=== PATIENT | female | born 1985 | race Hispanic/Latino ===

== ENCOUNTER 2022-11-10 05:34 | Emergency (ER) | payer SELFPAY ==
[2022-11-10 06:15] LABS: #Lymphocytes 3.4 thou/uL (1.20-3.40); #Monocytes 0.6 thou/uL (0.11-0.59); #Neutrophils 10.5 thou/uL (1.40-6.50); %Basophils 0.1 % (0.0-1.0); %Eosinophils 0.3 % (0.0-10.0); %Lymphocytes 23.1 % (21.0-51.0); %Monocytes 3.9 % (0.0-10.0); %Neutrophils 72.5 % (42.0-75.0); Mean Corpuscular Hemoglobin 25.4 pg (27.0-31.0); Mean Corpuscular Volume 76.8 fl (78.0-98.0); Mean Platelet Volume 8.1 fL (7.4-10.4); Platelet Count 427 10x3/uL (130-400); RBC Distribution Width 17.6 % (11.5-14.5); Red Blood Cell (RBC) Count 3.16 mill/uL (4.20-5.40); White Blood Cell (WBC) Count 14.5 10x3/uL (4.8-10.8)
[2022-11-10 06:17] LABS: BHCG - Serum Negative (NEGATIVE); Pregs Control Background? CLEAR/WHITE (CLR/WHITE); Pregs Control Bar Appear? YES (CONTROL BAR)
[2022-11-10 06:23] LABS: INR-International Normal Ratio 1.1; Prothrombin Time 14.3 sec (12.0-14.7)
[2022-11-10 06:24] LABS: PTT 24.3 sec (22.9-36.1)
[2022-11-10 06:32] LABS: ALT (SGPT) 35 U/L (8-55); AST (SGOT) 25 U/L (5-34); Albumin 3.9 g/dL (3.5-5.0); Alkaline Phosphatase 98 U/L (40-110); Anion Gap 11 mmol/L (10-20); BUN (Urea Nitrogen) 12 mg/dL (7.0-18.7); Bilirubin, Total 0.4 mg/dL (0.2-1.2); Calc. Creatinine Clearance 0 mL/min (70-130); Calcium 8.4 mg/dL (7.8-10.44); Carbon Dioxide 19 mmol/L (22-29); Chloride 106 mmol/L (98-107); Estimated GFR 115; Glucose 139 mg/dL (70-105); Potassium 4.1 mmol/L (3.5-5.1); Protein, Total 6.9 g/dL (6.0-8.3); Sodium 132 mmol/L (136-145)
[2022-11-10] MEDS ORDERED: Tranexamic Acid 1,000 MG/10 ML VIAL ONE (07:49)
[2022-11-10] MEDS ORDERED: Ketorolac Tromethamine 30 MG/ML VIAL ONE (07:49)
== END 2022-11-10 09:10 | disposition short-term general hospital (02) ==
LOC: ERS 05:34
DX: N93.9 Abnormal uterine and vaginal bleeding, unspecified (principal); D64.9 Anemia, unspecified; R00.0 Tachycardia, unspecified; R03.1 Nonspecific low blood-pressure reading
CPT/HCPCS: 36415; 36416; 76856; 80053; 84703; 85025; 85610; 85730; 86850; 86900; 86901; 96374; 96375; J1885